=== PATIENT | male | born 1970 | race Caucasian/White ===

== ENCOUNTER → 2022-08-29 10:54 | Outpatient (BNVA) | payer OTHER, SELFPAY | PROVIDERS: Referring Provider Family Medicine; Visit Provider Student in an Organized Health Care Education/Training Program | DX: S46.111A Strain of muscle, fascia and tendon of long head of biceps, right arm, initial encounter (principal); X50.0XXA Overexertion from strenuous movement or load, initial encounter; Y99.0 Civilian activity done for income or pay | CPT/HCPCS: 73030 ==

== ENCOUNTER 2022-09-23 07:00 | Outpatient (CLI) | payer OTHER, SELFPAY ==
--- NOTE | 2022-09-23 07:15 | MR_ITS ---
WS: [id number] MRI RIGHT SHOULDER HISTORY: pain COMPARISON: Radiographs 08/29/2022 TECHNIQUE: Multiplanar sequences of the shoulder joint are submitted. Moderate AC joint arthritis. Narrowing of the AC joint with marginal osteophytes. 5 mm osteophyte enc roaches upon the myotendinous insertion of the supraspinatus. Small amount of fluid in the subacromia l and subdeltoid bursa. Moderate subacromial impingement causing narrowing and encroachment upon the supraspinatus tendon directly over the humeral head. Biceps tendon in the bicipital groove. Extracapsular portion of biceps tendon is markedly thickened w ith increased intermediate signal. There is a small amount of increased fluid in the biceps tendon sh eath. No os acromion. Mild narrowing of the glenohumeral joint. Subchondral cysts in the humeral head and the glenoid. No r otator cuff muscle atrophy. Small amount of edema in the subscapularis muscle. There is moderate thic kening and increased signal in the subscapularis tendon. No rotator cuff tendon full-thickness tear. Moderate tendinopathy distal supraspinatus. MR/MR shoulder RT wo con* [id number] IMPRESSION: 1. Moderate AC joint arthritis with a 5 mm osteophyte encroachment upon the my otendinous insertion of the supraspinatus. 2. Distal mild to moderate tendinopathy in the subscapularis and supraspinatus tendons. 3. Marked thickening extracapsular portion of the biceps tendon and tenosynovi tis. 4. Degenerative subchondral cystic changes in the humeral head and glenoid. 5. Moderate subacromial impingement.
== END 2022-09-23 07:01 | disposition home or self-care (01) ==
PROVIDERS: PCP Family Medicine; Visit Provider Student in an Organized Health Care Education/Training Program
DX: S46.111A Strain of muscle, fascia and tendon of long head of biceps, right arm, initial encounter (principal); X58.XXXA Exposure to other specified factors, initial encounter; M19.011 Primary osteoarthritis, right shoulder; M25.711 Osteophyte, right shoulder; M25.811 Other specified joint disorders, right shoulder
CPT/HCPCS: 73221

== ENCOUNTER → 2023-05-05 11:54 | Outpatient (BNVA) | payer SELFPAY | PROVIDERS: PCP Nurse Practitioner Family; Visit Provider Nurse Practitioner Family | DX: M10.9 Gout, unspecified (principal); M79.671 Pain in right foot; Z79.899 Other long term (current) drug therapy; Z13.6 Encounter for screening for cardiovascular disorders | CPT/HCPCS: 73630; 80053; 80061; 81003; 83036; 84443; 84550; 85025 ==

== ENCOUNTER 2023-05-18 11:58 | Emergency (ER) | payer SELFPAY ==
[2023-05-18 12:05] VITALS: BP 167/120; PULSE 82; RESP 18; TEMP 36.3; O2SAT 100; BMI 35.1
--- NOTE | 2023-05-18 12:10 | ED_ITS ---
HPI - Headache General: Chief Complaint: Headache Stated Complaint: migraine, blurred vision Time Seen by Provider: 05/18/23 12:04 Source: patient Mode of arrival: ambulatory Limitations: no limitations History of Present Illness: 53-year-old male states he had a history of migraines he said he has had a migraine headache since yesterday. States he had some blurred vision with this headache rates his headache a 7 out of 10 he had photophobia and phonophobia denies any slurred speech or weakness has had some nausea denies any vomiting. Associated symptoms: Deny chest pain, fever(s), nausea, rash or vomiting Review of Systems Const: Denies: fever(s), chills, body aches or change in appetite Eyes: Reports: blurry vision; Denies: eye discomfort ENMT: Denies: throat pain or dental pain Card: Denies: chest pain Resp: Denies: dyspnea GI: Denies: abdominal pain, nausea, vomiting or diarrhea Musc: Denies: neck pain or back pain Skin/Breast: Denies: rash Neuro: Reports: headache(s) [facility] ED PFSH: Medical History (Updated 05/18/23 @ 13:43 by Estella Carter MD) Hyperlipemia Plantar fasciitis Bone spur of left foot Medication management Foot pain, right Gout Social History Smoking and tobacco/nicotine status: current every day tobacco/nicotine user Alcohol intake: current Alcohol intake frequency: holidays/special occasions only Substance/Drug Use: never Physical Exam Const: COMMON NORMALS: no acute distress, patient oriented x3 and healthy appearing HENMT: COMMON NORMALS: normocephalic and atraumatic HEAD & SCALP: normocephalic and atraumatic Eye: COMMON NORMALS: Equal, round and reactive pupils present and EOMs intact bilaterally PUPIL: Yes Equal, round and reactive pupils present Neck/C-Spine: COMMON NORMALS: full ROM and supple Chest: COMMONS NORMALS: normal inspection of the chest Resp: COMMON NORMALS: normal respiratory effort Cardio: COMMON NORMALS: regular rate, regular rhythm and No murmurs present (Cardio) RATE: regular rate RHYTHM: regular rhythm Extremity: COMMON NORMALS: normal to inspection and full ROM Neuro: COMMON NORMALS: patient oriented x3, moves all extremities and no focal motor deficits CRANIAL NERVES: Yes CN normal except as noted SPEECH: speech normal MOTOR EXAM: 5/5 motor strength present throughout Psych: COMMON NORMALS: mental status grossly normal, Normal thought process present and cooperative THOUGHT PROCESS: Normal thought process present Skin: COMMON NORMALS: no rashes or lesions noted and no wounds GENERAL SKIN EXAM: no rashes or lesions noted Course Vital Signs: Vital signs: Vital Signs Temperature 97.4 F L 05/18/23 12:05 Pulse Rate 71 05/18/23 13:16 Respiratory Rate 16 05/18/23 13:16 Blood Pressure 155/97 05/18/23 13:16 Pulse Oximetry 97 05/18/23 13:16 Oxygen Delivery Me thod Room Air 05/18/23 13:16 MDM - Headache Medical Decision Making Patient presents with a headaches likely migraine headache headaches much improved here his blurred vision is improved as well he has no signs of acute stroke. CT showed old findings from his stroke. Patient stable for discharge follow-up PCP return if worsening. Medical Records I reviewed the patient's medical records. Lab Data Radiology Impressions Head CT 05/18/23 12:58 IMPRESSION: 1. Right occipital and parietal hypodensities, likely representing old infarcts. This can be better assessed by MRI if clinically indicated. 2. No intracranial bleed. All radiology interpretation(s) finalized by discharge Discharge Plan Discharge Patient Disposition: Home Clinical Impression: Headache Condition: Stable Prescriptions: No Action atorvastatin [Lipitor] 80 mg tablet 80 mg PO DAILY aspirin 325 mg tablet 325 mg PO DAILY acetaminophen 325 mg Tablet 1,300 mg PO QID PRN (Reason: Pain) ibuprofen 200 mg Tablet 800 mg PO Q6H PRN (Reason: Pain) Discharge Orders: Discharge ED (Routine); Ordered 05/18/23 Ordered By: Estella Carter Referrals: [facility] SUPPORT SPECIALIST [Primary Care Provider] - 4-7 days Discharge Diet: Advance as tolerated Discharge Activity: Resume usual activity Patient Instructions: Migraine Headache (ED) Coding Level of Care Code ED Software Requirements Engineer for Aury Moreno
[2023-05-18] MEDS: diphenhydrAMINE 50 mg/mL SDV 1mL IVP (12:21)
[2023-05-18] MEDS: ketorolac 30 mg/mL INJ 15 MG IVP (12:21)
[2023-05-18] MEDS: metoclopramide 5 mg/mL SDV 2 mL 10 MG IVP (12:21)
[2023-05-18 12:39] VITALS: BP 174/113; PULSE 76; RESP 18; O2SAT 95
--- NOTE | 2023-05-18 12:45 | PC.NURSE ---
Pain 5/10, states he is a little nauseated, physician aware
--- NOTE | 2023-05-18 12:58 | CTR_ITS ---
PROCEDURE INFORMATION: Exam: CT Head Without Contrast Exam date and time: 05/18/2023 1:24 PM Age: 53 years old Clinical indication: Pain; Headache not specified; Additional info: [facility] TECHNIQUE: Imaging protocol: Computed tomography of the head without contrast. Radiation optimization: All CT scans at this facility use at least one of these dose optimization techniques: automated exposure control; mA and/or kV adjustment per patient size (includes targeted exams where dose is matched to clinical indication); or iterative reconstruction. COMPARISON: No relevant prior studies available. RADIATION DOSE METRICS: Total DLP (mGy-cm): 1163.38 FINDINGS: Brain: Cortical subcortical hypodensity in the posterior right parietal lobe, and right occipital lobe, from prior insult. No intracranial bleed. Cerebral ventricles: No ventriculomegaly. Paranasal sinuses: Visualized sinuses are unremarkable. No fluid levels. Mastoid air cells: Visualized mastoid air cells are well aerated. Bones/joints: Unremarkable. No acute fracture. Soft tissues: Unremarkable. CT/CT head wo con* [id number] IMPRESSION: 1. Right occipital and parietal hypodensities, likely representing old infarcts. This can be better assessed by MRI if clinically indicated. 2. No intracranial bleed.
[2023-05-18] MEDS: hyDRALAzine 20 mg/mL INJ 1 mL 10 MG IVP (13:01)
[2023-05-18] MEDS: ondansetron 2 mg/ML SDV 2 mL 4 MG IVP (13:01)
[2023-05-18 13:16] VITALS: BP 155/97; PULSE 71; RESP 16; O2SAT 97
[2023-05-18] MEDS: morphine 4 mg/mL SDV 1 mL IVP (13:58)
[2023-05-18 14:06] VITALS: BP 173/96; PULSE 75; RESP 16; O2SAT 98
== END 2023-05-18 14:07 | disposition home or self-care (01) ==
PROVIDERS: Emergency Provider Emergency Medicine; PCP Nurse Practitioner Family
DX: R51.9 Headache, unspecified (principal); Z79.82 Long term (current) use of aspirin; E78.5 Hyperlipidemia, unspecified; Z72.0 Tobacco use
CPT/HCPCS: 70450; 96374; 96375; 99285; J0360; J1200; J1885; J2270; J2405; J2765

== ENCOUNTER 2023-06-24 07:03 | Outpatient (CLI) | payer SELFPAY ==
--- NOTE | 2023-06-24 07:15 | MR_ITS ---
WS: [id number] MRI HEAD WITHOUT AND WITH GADOLINIUM ENHANCEMENT WITH ATTENTION TO THE ORBITS. TECHNIQUE: Sagittal T1, T2 axial, T2 axial FLAIR, axial susceptibility weighted imaging, axial diffus ion weighted images, and coronal T2 images were obtained. Pre and post-T1 axial and post T1 coronal i mages. ADC and FSPGR images. Orbit protocol fat-saturation technique. CLINICAL INFORMATION: R90.89 - Other abnormal findings on diagnostic imaging of... COMPARISON: CT 05/18/2023 FINDINGS: Serpiginous areas of partially restricted diffusion with associated cortical enhancement involving th e RIGHT posterior parietal and parasagittal occipital lobes compatible with subacute infarcts. This c orresponds to the lesions seen on the recent CT. Mild associated T2 hyperintensity and laminar necros is in these areas. No significant mass effect or midline shift. No other foci of restricted diffusion . Mild small vessel changes. Moderate parenchymal volume loss. Several tiny chronic lacunar infarcts in the LEFT cerebellum. Normal vascular flow voids at the skull base. No extra-axial fluid collections. No evidence of mass or mass effect. Small retention cyst RIGHT maxillary sinus. Paranasal sinuses an d mastoid air cells are well aerated. Normal posterior nasopharynx. Normal optic chiasm and pituitary infundibulum. Normal cavernous sinuses and Meckel's cave. Temporal lobes and hippocampal formations are normal in appearance. Normal optic nerves. No evidence of optic nerve edema or optic neuritis. No hemosiderin on the susceptibly weighted images. IMPRESSION: 1. Enhancing subacute infarcts correspond to the prior findings on the CT involving the RIGHT parasa gittal parietal and occipital lobes. 2. Mild small vessel changes and moderate parenchymal volume loss. 3. Numerous tiny chronic lacunar infarcts in the LEFT cerebellum.
[2023-06-24] MEDS: gadobenate dimeglumine 20 mL vial IV (07:46)
== END 2023-06-24 07:04 | disposition home or self-care (01) ==
LOC: RAD 07:03
PROVIDERS: PCP Nurse Practitioner Family; Visit Provider Nurse Practitioner Family
DX: R90.89 Other abnormal findings on diagnostic imaging of central nervous system (principal); G43.909 Migraine, unspecified, not intractable, without status migrainosus; D33.2 Benign neoplasm of brain, unspecified; G31.89 Other specified degenerative diseases of nervous system
CPT/HCPCS: 70543; 70553; A9577

== ENCOUNTER → 2023-09-03 11:41 | Outpatient (BNVA) | payer MEDICAID, SELFPAY | PROVIDERS: PCP Nurse Practitioner Family; Visit Provider Nurse Practitioner Family | DX: Z79.899 Other long term (current) drug therapy; I10 Essential (primary) hypertension | CPT/HCPCS: 82607; 82746; 84207; 84443 ==

== ENCOUNTER → 2024-06-03 10:34 | Outpatient (BNVA) | payer MEDICAID, SELFPAY | PROVIDERS: PCP Nurse Practitioner Family; Visit Provider Nurse Practitioner Family | DX: E78.2 Mixed hyperlipidemia (principal) | CPT/HCPCS: 80061; 84443 ==

== ENCOUNTER 2024-12-07 06:58 | Outpatient (CLI) | payer MEDICAID, SELFPAY ==
--- NOTE | 2024-12-07 07:05 | MR_ITS ---
WS: [id number] MRI NECK WITH AND WITHOUT CONTRAST. COMPARISON: 06/24/2023 Multiplanar, multisequence imaging is performed with and without contrast. Sagittal and axial T1 fat sat sequences post-MultiHance 20 cc IV. No signal abnormality noted in the nasopharynx, hypopharynx or larynx. Subglottic airway is negative. No mass or signal abnormality along the eustachian tubes. No enhancement along the torus tubarius. There are small cervical chain lymph nodes. No lymphadenopathy. Visualized parotid glands and salivary glands are normal. Straightening and slight reversal of the normal cervical lordosis. Marrow edema in the C4, C5 and C6 is probably reactive. Slight retrolisthesis of C5 by 2 mm. No signal abnormality in the cord. MR/MR orbit face neck wo/w* [id number] IMPRESSION: 1. No neck or laryngeal mass identified. 2. No cervical chain adenopathy. 3. Marrow edema in C4, C5 and C6 is probably reactive. No acute fracture ident ified.
[2024-12-07] MEDS: gadobenate dimeglumine 20 mL vial IV (08:00)
== END 2024-12-07 06:59 | disposition home or self-care (01) ==
LOC: RAD 06:59
PROVIDERS: PCP Nurse Practitioner Family; Visit Provider Nurse Practitioner Family
DX: H92.01 Otalgia, right ear (principal); M53.82 Other specified dorsopathies, cervical region; R60.9 Edema, unspecified
CPT/HCPCS: 70543